=== PATIENT | male | born 1980 | race Two or more races ===

== ENCOUNTER 2018-12-27 10:53 | Emergency (ER) | payer OTHER ==
[~2018-12-27] VITALS: Ht 172.7 cm; Wt 85.7 kg
[2018-12-27 13:15] VITALS: BP 130/88
== END 2018-12-27 13:16 | disposition home or self-care (01) ==
LOC: ER 10:58
DX: S80.12XA Contusion of left lower leg, initial encounter (principal); X58.XXXA Exposure to other specified factors, initial encounter; Y93.39 Activity, other involving climbing, rappelling and jumping off; Y92.098 Other place in other non-institutional residence as the place of occurrence of the external cause; Y99.8 Other external cause status
CPT/HCPCS: 73560; 73620

== ENCOUNTER 2019-03-25 14:47 | Emergency (ER) | payer OTHER ==
[~2019-03-25] VITALS: Ht 172.7 cm; Wt 86.2 kg
[2019-03-25 14:54] VITALS: BP 127/72
[2019-03-25] MEDS ORDERED: methylPREDNISolone SOD SUCC 125 MG/2 ML VL IM ONE (16:00)
[2019-03-25] MEDS ORDERED: EPINEPHrine HCL 1 MG/1 ML AMP SC ONE (16:00)
== END 2019-03-25 16:34 | disposition home or self-care (01) ==
LOC: ER 14:51
DX: T63.441A Toxic effect of venom of bees, accidental (unintentional), initial encounter (principal); R22.32 Localized swelling, mass and lump, left upper limb; Y92.89 Other specified places as the place of occurrence of the external cause
CPT/HCPCS: 96372; 99283; J0171; J2930

== ENCOUNTER 2019-08-16 13:41 | Emergency (ER) | payer OTHER ==
[~2019-08-16] VITALS: Ht 172.7 cm; Wt 83.9 kg
[2019-08-16 14:32] VITALS: BP 107/68
[2019-08-16 16:31] LABS: Urine Bacteria NONE SEEN /hpf (None Seen); Urine Blood Negative /uL (Negative); Urine Mucus FEW (None Seen); Urine WBC 1 /hpf (0 - 3)
== END 2019-08-16 23:58 | disposition home or self-care (01) ==
LOC: ER 13:41
DX: S33.5XXA Sprain of ligaments of lumbar spine, initial encounter (principal); M62.838 Other muscle spasm; X58.XXXA Exposure to other specified factors, initial encounter; Y93.89 Activity, other specified; Y92.89 Other specified places as the place of occurrence of the external cause; Y99.8 Other external cause status
CPT/HCPCS: 74176; 81001

== ENCOUNTER 2019-08-21 12:57 | Emergency (ER) | payer OTHER ==
[~2019-08-21] VITALS: Ht 175.3 cm; Wt 81.6 kg
[2019-08-21 13:14] VITALS: BP 110/75
[2019-08-21] MEDS ORDERED: KETOROLAC TROMETH 60MG/2ML VIAL IM ONE (14:15)
== END 2019-08-21 14:39 | disposition home or self-care (01) ==
LOC: ER 12:57
DX: S39.012A Strain of muscle, fascia and tendon of lower back, initial encounter (principal); X50.1XXA Overexertion from prolonged static or awkward postures, initial encounter; Y93.89 Activity, other specified; Y92.89 Other specified places as the place of occurrence of the external cause; Y99.8 Other external cause status
CPT/HCPCS: 96372; 99283; J1885

== ENCOUNTER 2019-08-23 08:54 | Emergency (ER) | payer OTHER ==
[~2019-08-23] VITALS: Ht 172.7 cm; Wt 81.6 kg
[2019-08-23 09:20] VITALS: BP 126/73
[2019-08-23] MEDS ORDERED: methylPREDNISolone SOD SUCC 125 MG/2 ML VL IM ONE (10:30)
[2019-08-23] MEDS ORDERED: KETOROLAC TROMETH 60MG/2ML VIAL IM ONE (10:30)
== END 2019-08-23 11:10 | disposition home or self-care (01) ==
LOC: ER 09:00
DX: M54.6 Pain in thoracic spine (principal)
CPT/HCPCS: 96372; 99284; J1885; J2930

== ENCOUNTER 2019-10-23 20:49 | Emergency (ER) | payer OTHER ==
[~2019-10-23] VITALS: Ht 172.7 cm; Wt 85.7 kg
[2019-10-23 22:23] VITALS: BP 114/71
[2019-10-23] MEDS ORDERED: KETOROLAC TROMETH 60MG/2ML VIAL IM ONE ×2 (22:45)
== END 2019-10-24 00:13 | disposition home or self-care (01) ==
LOC: ER 20:49
DX: S63.286A Dislocation of proximal interphalangeal joint of right little finger, initial encounter (principal); W01.0XXA Fall on same level from slipping, tripping and stumbling without subsequent striking against object, initial encounter; Y93.01 Activity, walking, marching and hiking; Y92.59 Other trade areas as the place of occurrence of the external cause; Y99.8 Other external cause status
CPT/HCPCS: 29130; 73140; 96372; 99283; J1885

== ENCOUNTER → 2020-03-12 | Emergency (ER) | payer MEDICAID, OTHER ==
[~2020-03-12] VITALS: Ht 172.7 cm; Wt 79.4 kg
[~2020-03-12] MED LIST: KETOROLAC TROMETH 60MG/2ML VIAL IM ONE
[2020-03-12 16:20] VITALS: BP 116/82
== END | disposition home or self-care (01) ==
LOC: ER 12:52
DX: M54.31 Sciatica, right side (principal); Z87.828 Personal history of other (healed) physical injury and trauma
CPT/HCPCS: 96372; 99283; J1885